=== PATIENT | male | born 1950 | race African-American/Black ===

== ENCOUNTER 2023-05-03 12:15 | Emergency (ER) | payer MEDICAID, MEDICARE ==
[~2023-05-03] VITALS: Ht 182.9 cm; Wt 66.0 kg
[~2023-05-03 12:15] MED LIST: bactrim; keflex; motrin; norco
[2023-05-03 12:24] VITALS: BP 185/89; PULSE 64; RESP 18; TEMP 97.9; O2SAT 98
[2023-05-03] MEDS ORDERED: LIDOCAINE HCL/EPINEPHRINE 1%-EPI 1:100,000 50 ML VIAL INFIL ONE (13:15)
[2023-05-03] MEDS ORDERED: LIDOCAINE HCL/EPINEPHRINE 1%-EPI 1:100,000 20 ML VIAL INFIL ONE (13:15)
== END 2023-05-03 13:58 | disposition left against medical advice (07) ==
LOC: ER 13:08
DX: L02.11 Cutaneous abscess of neck (principal)
CPT/HCPCS: 10060; 99284; J3490

== ENCOUNTER 2025-06-24 13:15 | Emergency (ER) | payer BC, OTHER ==
[~2025-06-24] VITALS: Ht 185.4 cm; Wt 82.0 kg
[2025-06-24 13:17] VITALS: O2SAT 97
[2025-06-24] MEDS ORDERED: SODIUM CHLORIDE 0.9% 1,000 ML IV ONE (13:30)
[2025-06-24 14:40] LABS: BASOPHILS % 0.3 % (0.0-2.0); EOSINOPHILS % 0.8 % (0.0-5.0); HEMATOCRIT. 36.7 % (42.0-52.0); HEMOGLOBIN. 12.3 g/dL (14.0-18.0); LYMPHOCYTES % 15.5 % (20.0-50.0); MEAN PLATELET VOLUME 7.5 fl (7.4-10.4); MONOCYTES % 8.7 % (2.0-8.0); NEUTROPHILS % 74.7 % (40.0-76.0); PLATELET 218 x1000/uL (130-400); RED BLOOD CELL COUNT 3.96 mill/uL (4.7-6.1); RED CELL DISTRIBUTION WIDTH 15.4 % (11.6-14.6)
[2025-06-24 14:52] LABS: INR 1.0
[2025-06-24 14:55] LABS: CREATININE 2.2 mg/dL (0.6-1.3); UREA NITROGEN BLOOD 23 mg/dL (9-23)
[2025-06-24 14:56] LABS: PROTEIN TOTAL 7.2 g/dL (6.0-8.3)
[2025-06-24 14:57] LABS: ASPARTATE AMINOTRANSFERASE 16 IU/L (<34); BILIRUBIN DIRECT 0.1 mg/dL (<=3.0); BILIRUBIN TOTAL 0.3 mg/dL (0.1-1.0); TROPONIN I HIGH SENSITIVITY 5 ng/L (3.0-53)
[2025-06-24 15:45] VITALS: BP 130/68; PULSE 63; RESP 16; TEMP 36.6; O2SAT 99
[2025-06-24 17:18] LABS: INFLUENZA TYPE A Presumptive Negative (Pres. Neg.)
[2025-06-24 17:19] LABS: INFLUENZA TYPE B Presumptive Negative (Pres. Neg.); RESPIRATORY SYNCYTIAL VIRUS Not Detected (Not Detectd)
== END 2025-06-24 16:04 | disposition home or self-care (01) ==
LOC: ER 13:15 → CANBEDREQ 15:23 → ER 16:04
DX: T67.5XXA Heat exhaustion, unspecified, initial encounter (principal); I10 Essential (primary) hypertension; Z86.73 Personal history of transient ischemic attack (TIA), and cerebral infarction without residual deficits; Z20.822 Contact with and (suspected) exposure to COVID-19; X58.XXXA Exposure to other specified factors, initial encounter; Y93.89 Activity, other specified; Y92.89 Other specified places as the place of occurrence of the external cause; Y99.8 Other external cause status
CPT/HCPCS: 99285; 71045; 87426; 80076; 80048; 82140; 82550; 83880; 83735; 85025; 85610; 87420; 84484; 87804 ×2; 36415; 93005; J7030; A4606